=== PATIENT | female | born 1960 | race Caucasian/White ===

== ENCOUNTER 2017-10-10 19:48 | Emergency (ER) | payer BC, OTHER ==
[2017-10-10 20:25] LABS: #Basophils 0.1 thou/uL (0.0-0.2); #Lymphocytes 2.9 thou/uL (1.20-3.40); #Monocytes 1.1 thou/uL (0.11-0.59); #Neutrophils 7.5 thou/uL (1.40-6.50); %Basophils 0.5 % (0.0-1.0); %Eosinophils 0.4 % (0.0-10.0); %Lymphocytes 24.7 % (21.0-51.0); %Monocytes 9.2 % (0.0-10.0); %Neutrophils 65.3 % (42.0-75.0); Hemoglobin 14.4 g/dL (12.0-16.0); Mean Corpuscular HGB CONC 34.5 g/dL (32.0-36.0); Mean Corpuscular Hemoglobin 29.9 pg (27.0-31.0); Mean Corpuscular Volume 86.4 fl (81.0-99.0); Platelet Count 294 thou/uL (130-400); RBC Distribution Width 13.1 % (11.5-14.5); Red Blood Cell (RBC) Count 4.82 mill/uL (4.20-5.40); White Blood Cell (WBC) Count 11.5 thou/uL (4.8-10.8)
[2017-10-10 20:45] LABS: ALT (SGPT) 33 U/L (8-55); AST (SGOT) 32 U/L (5-34); Albumin 4.2 g/dL (3.5-5.0); Alkaline Phosphatase 96 U/L (40-150); Anion Gap 19 mmol/L (10-20); BUN (Urea Nitrogen) 16 mg/dL (9.8-20.1); Bilirubin, Total 0.6 mg/dL (0.2-1.2); Calc. Creatinine Clearance 0 mL/min (70-130); Calcium 9.8 mg/dL (7.8-10.44); Carbon Dioxide 18 mmol/L (22-29); Chloride 103 mmol/L (98-107); Estimated GFR-MDRD 49; Globulin 3.6 g/dL (2.4-3.5); Glucose 136 mg/dL (70-105); Potassium 4.7 mmol/L (3.5-5.1); Protein, Total 7.8 g/dL (6.0-8.3); Sodium 135 mmol/L (136-145)
[2017-10-10] MEDS ORDERED: Ondansetron ODT 8 MG TAB ONE (20:45)
[2017-10-10] MEDS ORDERED: Ketorolac Tromethamine 30 MG/ML VIAL ONE (20:45)
--- NOTE | 2017-10-10 21:30 | CT ---
CT ABDOMEN AND PELVIS WITHOUT CONTRAST: 10/10/17 Multiple axial tomograms obtained through the abdomen and pelvis without IV enhancement. INDICATIONS: Right flank pain with fever. Comparison made to CT abdomen and pelvis, 05/24/16. FINDINGS: Lung bases clear. The liver, spleen, and pancreas unremarkable. There is mild right hydronephrosis. There is a 5 mm calculus in the proximal right ureter producing m ild right hydronephrosis. Left ureter is normal in appearance. There are numerous nonobstructing calc omar in the upper collecting structures of the right kidney measuring in the 3 to 5 mm range. There is evidence of tiny nonobstructing calculi in the upper collecting structures of the left kidney measur ing in the 1 mm range. Bowel loops are unremarkable. Appendix appears normal. There is diverticulosis again noted. 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 IMPRESSION: 1. 5 mm obstructing calculus mid right ureter. 2. Nonobstructing calculi in the upper collecting structures of both kidneys, more numerous on the right. 3. 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 4. Diverticulosis. POS: [facility]
[2017-10-10 22:12] LABS: Bilirubin Negative (Negative); Blood, Urine Large (Negative); Clarity CLOUDY (Clear); Glucose, Urine (Dipstick) Negative (Negative); Leukocyte Small (Negative); Nitrite Negative (Negative); Protein, Urine (Dipstick) Trace mg/dL (Neg-Trace); Specific Gravity, Urine 1.017 (1.002-1.036); Urobilinogen 0.2 mg/dL (0.2-1.0); pH, Urine 7.5 (5.0-9.0)
[2017-10-10 22:16] LABS: Bacteria/HPF 1+ HPF (None Seen); Hyaline Casts/LPF 0-3 HYALINE CAST LPF (0-3 Hyaline); RBC/HPF GREATER THAN 50-TNTC HPF (0-3); Squamous Epithelial 0-3 HPF (0-3); WBC/HPF 0-3 HPF (0-3)
== END 2017-10-10 22:45 | disposition home or self-care (01) ==
LOC: ERS 19:48
DX: N13.2 Hydronephrosis with renal and ureteral calculous obstruction (principal); E66.9 Obesity, unspecified
CPT/HCPCS: 74176; 80053; 81003; 81015; 83690; 85025; 96361; 96374; J1885

== ENCOUNTER 2017-11-06 12:14 | Outpatient (CLI) | payer BC | END 2017-11-06 12:15 | disposition home or self-care (01) | LOC: BICULT 12:14 | PROVIDERS: ATTEND Urology | DX: N20.0 Calculus of kidney (principal) | CPT/HCPCS: 76770 ==

== ENCOUNTER 2017-11-08 12:59 | Day surgery (SDC) | payer BC ==
[2017-11-07 09:52] VITALS: BMI 51.5
[2017-11-08] MEDS ORDERED: Midazolam HCl 2 mg/2 ml Vial ONE (13:40)
[2017-11-08] MEDS ORDERED: PROPOFOL 200 MG/20 ML VIAL ONE (14:30)
[2017-11-08] MEDS ORDERED: Lidocaine 1% PF 5 ML VIAL ONE (14:30)
[2017-11-08 15:47] LABS: #Basophils 0.1 thou/uL (0.0-0.2); #Eosinphils 0.1 thou/uL (0.0-0.7); #Lymphocytes 2.4 thou/uL (1.20-3.40); #Monocytes 0.6 thou/uL (0.11-0.59); #Neutrophils 5.6 thou/uL (1.40-6.50); %Basophils 0.6 % (0.0-1.0); %Eosinophils 1.4 % (0.0-10.0); %Lymphocytes 27.8 % (21.0-51.0); %Monocytes 6.4 % (0.0-10.0); %Neutrophils 63.9 % (42.0-75.0); Hemoglobin 14.1 g/dL (12.0-16.0); Mean Corpuscular HGB CONC 33.7 g/dL (32.0-36.0); Mean Corpuscular Hemoglobin 29.5 pg (27.0-31.0); Mean Corpuscular Volume 87.6 fL (78.0-98.0); Mean Platelet Volume 6.9 fL (7.4-10.4); Platelet Count 273 thou/uL (130-400); RBC Distribution Width 13.4 % (11.5-14.5); Red Blood Cell (RBC) Count 4.78 mill/uL (4.20-5.40); White Blood Cell (WBC) Count 8.8 thou/uL (4.8-10.8)
[2017-11-08 16:08] LABS: ALT (SGPT) 27 U/L (8-55); AST (SGOT) 24 U/L (5-34); Albumin 4.2 g/dL (3.5-5.0); Alkaline Phosphatase 91 U/L (40-150); Anion Gap 14 mmol/L (10-20); BUN (Urea Nitrogen) 12 mg/dL (9.8-20.1); Bilirubin, Total 0.6 mg/dL (0.2-1.2); Calc. Creatinine Clearance 145 mL/min (70-130); Calcium 9.7 mg/dL (7.8-10.44); Carbon Dioxide 26 mmol/L (22-29); Chloride 103 mmol/L (98-107); Estimated GFR-MDRD 62; Globulin 2.9 g/dL (2.4-3.5); Glucose 86 mg/dL (70-105); Potassium 3.8 mmol/L (3.5-5.1); Protein, Total 7.1 g/dL (6.0-8.3); Sodium 139 mmol/L (136-145)
--- NOTE | 2017-11-08 20:10 | OP ---
DATE OF PROCEDURE: 11/08/2017 TITLE OF PROCEDURE: Colonoscopy with biopsy. PREPROCEDURE DIAGNOSES: 1. Chronic diarrhea. 2. A 15-pound weight loss in over 3 months. 3. History of negative stool tests for Clostridium difficile and parasites. POSTPROCEDURE DIAGNOSES: 1. Exam to cecum; adequate bowel preparation. 2. Mildly tortuous colon, diffusely. 3. Mild sigmoid diverticulosis. 4. Pancolitis extending from the cecum distally to the rectum with the most severe involvement in th e sigmoid and descending colon. 5. Endoscopic findings suspicious for ulcerative colitis. 6. Small internal hemorrhoids. PROCEDURE IN DETAIL: Written informed consent was obtained. Upon completion of the EGD, the patient was repositioned for the colonoscopy. Total intravenous anesthesia was provided by Dr. Jean Claude Sparrow and associates. The patient was placed in the left lateral decubitus position. A digital rectal ex am was performed that was unremarkable. A Pentax video colonoscope was inserted through the anal can al and advanced under direct visualization to the cecum. Position in the cecum was verified by palpa tion and identification of the ileocecal valve, although the valve was not intubated. Endoscopic fin dings revealed a diffusely tortuous colon, which made it difficult to reach the cecal tip. Also, bec ause of opaque liquid stool pooling in several areas of the colon including the cecum, identification of the cecal strap and appendiceal orifice was not possible. Endoscopic findings revealed pancoliti s extending from the cecum to the rectum with the most severe involvement in the descending and sigmo id colon. Circumferential edema, erythema, attenuation and/or loss of the normal vascular pattern we re the most notable mucosal changes. Mucous was apparent in the colon, especially in the left colon. There was no evidence of luminal narrowing or stricture. Biopsies were obtained at 5 different lev els in the cecum/ascending colon. Transverse colon, descending colon, sigmoid colon, and rectosigmoi d colon. No polyps were identified. In the rectum, a retroflexed exam demonstrated small internal h emorrhoids. The colon was decompressed as the colonoscope was removed from the patient. She was tra nsferred to the day stay surgery area for post-procedure monitoring. There were no immediate complic ations. RECOMMENDATIONS: 1. Await biopsy results. 2. Ask the patient to call me in 1 week for biopsy results. 3. Have patient follow up in the clinic in 10-14 days. 4. Further recommendations regarding therapy, pending release of pathology results.
--- NOTE | 2017-11-08 20:11 | OP ---
DATE OF PROCEDURE: 11/08/2017 TITLE OF PROCEDURE: EGD with biopsy. PREPROCEDURE DIAGNOSES: 1. Intermittent epigastric pain. 2. Nausea and vomiting. 3. Recent 15-pound weight loss. POSTPROCEDURE DIAGNOSES: 1. Examination to second portion of duodenum. 2. Normal appearing esophagus. 3. Mild body and antral gastritis, biopsied for histology. 4. No evidence of gastric or duodenal ulcers. 5. Possible mild duodenitis, bulb, biopsied for histology. PROCEDURE IN DETAIL: Written informed consent was obtained. The patient was brought to the endoscop y suite. Total intravenous anesthesia was provided by Dr. Jean Claude Sparrow and associates. The patient was placed in the left lateral decubitus position. A bite block was inserted into the mouth. When a dequate sedation was achieved, a Pentax video diagnostic gastroscope was introduced into the oral cav ity and the esophagus was carefully intubated. The gastroscope was advanced under direct visualizati on to the second portion of the duodenum. Endoscopic findings revealed a grossly normal appearing es ophagus with the Z-line estimated at 41 cm. The stomach was entered and carefully examined. This in cluded a careful retroflexed view of the cardia and fundus. Mild patchy erythema was noted in the di stal body and antrum without ulceration. Biopsies were obtained for histology. The duodenum was the n entered and carefully examined. Mild patchy erythema was also noted in the duodenal bulb without u lceration. Biopsies were obtained here and in the postbulbar duodenum for histology. The stomach wa s decompressed as the endoscope was removed from the patient. There were no immediate complications. She was repositioned for the colonoscopy. RECOMMENDATIONS: 1. Await pathology results. 2. Ask the patient to call me in 1 week for pathology results. 3. Follow up in GI clinic in 10-14 days. 4. We will prescribe a short course of omeprazole 40 mg daily for the next 4 weeks.
== END 2017-11-08 16:15 | disposition home or self-care (01) ==
LOC: SDC 12:59
PROVIDERS: ATTEND Internal Medicine Gastroenterology
PROC: 0DBK8ZX Excision of Ascending Colon, Via Natural or Artificial Opening Endoscopic, Diagnostic (ICD-10-PCS; principal; 2017-11-08)
PROC: 0DBN8ZX Excision of Sigmoid Colon, Via Natural or Artificial Opening Endoscopic, Diagnostic (ICD-10-PCS; principal; 2017-11-08)
PROC: 0DBL8ZX Excision of Transverse Colon, Via Natural or Artificial Opening Endoscopic, Diagnostic (ICD-10-PCS; principal; 2017-11-08)
PROC: 0DB98ZX Excision of Duodenum, Via Natural or Artificial Opening Endoscopic, Diagnostic (ICD-10-PCS; principal; 2017-11-08)
PROC: 0DB78ZX Excision of Stomach, Pylorus, Via Natural or Artificial Opening Endoscopic, Diagnostic (ICD-10-PCS; principal; 2017-11-08)
PROC: 0DBH8ZX Excision of Cecum, Via Natural or Artificial Opening Endoscopic, Diagnostic (ICD-10-PCS; principal; 2017-11-08)
PROC: 0DBM8ZX Excision of Descending Colon, Via Natural or Artificial Opening Endoscopic, Diagnostic (ICD-10-PCS; principal; 2017-11-08)
DX: K52.9 Noninfective gastroenteritis and colitis, unspecified (principal); K29.50 Unspecified chronic gastritis without bleeding; B96.81 Helicobacter pylori [H. pylori] as the cause of diseases classified elsewhere; K63.89 Other specified diseases of intestine; K57.30 Diverticulosis of large intestine without perforation or abscess without bleeding; K64.8 Other hemorrhoids; E07.9 Disorder of thyroid, unspecified; Z79.899 Other long term (current) drug therapy; Z98.84 Bariatric surgery status
CPT/HCPCS: 36415; 80053; 85025; 85652; 86141; 88305; 88312; J2001; J2250; J2704

== ENCOUNTER 2020-02-27 08:03 | Outpatient (CLI) | payer BC ==
--- NOTE | 2020-02-27 08:26 | MMO ---
Bilateral MAMMO Bilat Screen [facility]. CLINICAL HISTORY: Patient is 60 years old and is seen for screening. The patient has the following family history of breast cancer: sister, malignant (generic). The patient has no personal history of cancer. VIEWS: The views performed were: bilateral craniocaudal with tomosynthesis and bilateral mediolateral oblique with tomosynthesis. FILMS COMPARED: The present examination has been compared to prior imaging studies performed at [facility] on 03/04/2007, 12/23/2008, 02/08/2011 and 04/12/2016. This study has been interpreted with the assistance of computer-aided detection. MAMMOGRAM FINDINGS: The breasts are almost entirely fat. Finding 1: There are stable benign appearing calcifications seen in both breasts. Finding 2: There are stable intramammary lymph nodes seen in both breasts. There are no suspicious masses, suspicious calcifications, or new areas of architectural distortion. IMPRESSION: THERE IS NO MAMMOGRAPHIC EVIDENCE OF MALIGNANCY. A ROUTINE FOLLOW-UP MAMMOGRAM IN 1 YEAR IS RECOMMENDED. THE RESULTS OF THIS EXAM WERE SENT TO THE PATIENT. ACR BI-RADS Category 2 - Benign finding MAMMOGRAPHY NOTE: 1. A negative mammogram report should not delay a biopsy if a dominant of clinically suspicious mass is present. 2. Approximately 10% to 15% of breast cancers are not detected by mammography. 3. Adenosis and dense breasts may obscure an underlying neoplasm. Reported by: YAMINI UNDERWOOD MD Electonically Signed: [id number]
== END 2020-02-27 08:04 | disposition home or self-care (01) ==
LOC: BICMAMMO 08:03
PROVIDERS: ATTEND Internal Medicine
DX: Z12.31 Encounter for screening mammogram for malignant neoplasm of breast (principal); Z80.3 Family history of malignant neoplasm of breast
CPT/HCPCS: 77063; 77067

== ENCOUNTER 2022-04-17 07:44 | Outpatient (CLI) | payer BC | END 2022-04-17 07:45 | disposition home or self-care (01) | LOC: BICMAMMO 07:44 | PROVIDERS: ATTEND Internal Medicine | DX: Z12.31 Encounter for screening mammogram for malignant neoplasm of breast (principal); Z80.3 Family history of malignant neoplasm of breast | CPT/HCPCS: 77063; 77067 ==

== ENCOUNTER 2022-07-14 13:08 | Outpatient (CLI) | payer BC | END 2022-07-14 13:09 | disposition home or self-care (01) | LOC: BICMAMMO 13:08 | PROVIDERS: ATTEND Physician Assistant | DX: Z13.820 Encounter for screening for osteoporosis (principal); Z78.0 Asymptomatic menopausal state; M85.851 Other specified disorders of bone density and structure, right thigh; M85.852 Other specified disorders of bone density and structure, left thigh | CPT/HCPCS: 77080 ==

== ENCOUNTER 2023-03-29 13:32 | Outpatient (CLI) | payer BC | END 2023-03-29 13:33 | disposition home or self-care (01) | LOC: BICRAD 13:32 | PROVIDERS: ATTEND Physician Assistant | DX: M79.601 Pain in right arm (principal); M19.011 Primary osteoarthritis, right shoulder ==

== ENCOUNTER 2025-03-12 16:41 | Outpatient (CLI) | payer BC | END 2025-03-12 16:42 | disposition home or self-care (01) | LOC: RAD 16:41 | PROVIDERS: ATTEND Nurse Practitioner Family | DX: R06.02 Shortness of breath (principal) | CPT/HCPCS: 71046 ==

== ENCOUNTER 2025-03-16 07:19 | Observation (INO) | payer BC ==
[2025-03-16 07:55] LABS: #Basophils 0.06 10x3/uL (0.0-0.2); #Eosinophils 0.18 10x3/uL (0.0-0.7); #Monocytes 0.61 10x3/uL (0.11-0.59); #Neutrophils 4.92 10x3/uL (1.40-6.50); %Basophils 0.8 % (0.0-1.0); %Eosinophils 2.3 % (0.0-10.0); %Lymphocytes 25.0 % (21.0-51.0); %Monocytes 7.9 % (0.0-10.0); %Neutrophils 63.7 % (42.0-75.0); Hematocrit 44.9 % (36.0-47.0); Hemoglobin 14.0 g/dL (12.0-16.0); Mean Corpuscular Hemoglobin 27.8 pg (27.0-31.0); Mean Corpuscular Volume 89.1 fL (78.0-98.0); Platelet Count 230 10x3/uL (130-400); Red Blood Cell (RBC) Count 5.04 mill/uL (4.20-5.40); White Blood Cell (WBC) Count 7.72 10x3/uL (4.8-10.8)
[2025-03-16] MEDS ORDERED: Nitroglycerin 2% Ointment 1 INCH/1 GM Packet ONE (07:59)
[2025-03-16 08:01] LABS: Bacteria/HPF Rare-Few HPF (None Seen); CAUTI Indications for Culture Dysuria,urgency,freq; Glucose, Urine (Dipstick) Normal (Negative); Leukocyte 75 Leu/uL (Negative); Protein, Urine (Dipstick) Negative (Neg-Trace); RBC/HPF 0-3 HPF (0-3); Specific Gravity, Urine 1.020 (1.002-1.036)
[2025-03-16 08:02] LABS: Urine Culture Reflex Yes Yes
[2025-03-16 08:12] LABS: ALT (SGPT) 12 U/L (Less than 34); AST (SGOT) 17 U/L (11-34); Albumin 4.1 g/dL (3.1-4.5); Alkaline Phosphatase 93 U/L (40-110); Anion Gap 16 mmol/L (10-20); BUN (Urea Nitrogen) 17 mg/dL (9.8-20.1); Bilirubin, Total 0.5 mg/dL (0.3-1.2); Calc. Creatinine Clearance 0 mL/min (70-130); Calcium 9.7 mg/dL (7.8-10.44); Carbon Dioxide 20 mmol/L (23-31); Chloride 107 mmol/L (98-107); Globulin 3.2 g/dL (2.4-3.5); Glucose 103 mg/dL (80-115); Potassium 4.4 mmol/L (3.5-5.1); Sodium 139 mmol/L (136-145)
[2025-03-16] MEDS: Aspirin 325 MG TAB PO SCH (12:36)
[2025-03-16] MEDS ORDERED: Acetaminophen 325 MG TAB PO PRN (13:31)
[2025-03-16 13:58] VITALS: BMI 49.5
[2025-03-16] MEDS: HYDROcodone/Acetaminophen 10/325 mg Tablet PO PRN (14:05)
[2025-03-16] MEDS ORDERED: Communication Order-Pharmacy FS SCH (16:00)
[2025-03-17 05:22] LABS: Cardiac Risk 3.8 (Less than 4.5); Cholesterol 153.0 mg/dl (< 200 Desired); HDL Cholesterol 40.0 mg/dL (>60 Neg Risk); LDL Cholesterol, Calculated 88.0 mg/dL; Triglycerides 126.0 mg/dL (Less than 150)
[2025-03-17] MEDS: Aspirin Chewable 81 MG TAB PO SCH (06:28)
[2025-03-17] MEDS ORDERED: Heparin 10,000 UNITS/ 10 ML VIAL ONE (06:51)
[2025-03-17] MEDS ORDERED: PHENYLEPHRINE-NS 100 MCG/ML 10 ML SYRINGE ONE (06:51)
[2025-03-17] MEDS ORDERED: Lidocaine 1% (PF) 30 ML VIAL ONE (06:51)
[2025-03-17] MEDS ORDERED: Adenosine 6 mg (2 mL) VIAL ONE (06:51)
[2025-03-17] MEDS ORDERED: Nitroglycerin 50 MG/250 ML BOT 250 ML ONE (06:51)
[2025-03-17] MEDS: FLU (Fluarix Triv) 25-26 (6MOS UP)/PF 45 MCG/0.5 ML Syringe IM ONE (10:28)
[2025-03-17] MEDS: TICAGRELOR 90 MG TABLET PO SCH (11:39)
[2025-03-17 12:17] VITALS: BP 104/62; TEMP 98.5
[2025-03-17] MEDS: cefTRIAXone\\ROCEPHIN 1 GM in Sodium Chloride 0.9% 100 ML IVPB SCH (13:54)
[2025-03-17] MEDS ORDERED: TICAGRELOR 90 MG TABLET PO SCH (21:00)
[2025-03-18] MEDS ORDERED: Aspirin Chewable 81 MG TAB PO SCH (09:00)
== END 2025-03-17 16:45 | disposition home or self-care (01) ==
LOC: ERS 07:19 → OBS 10:06
PROVIDERS: ADMIT Internal Medicine; ATTEND Hospitalist
DX: I25.110 Atherosclerotic heart disease of native coronary artery with unstable angina pectoris (principal); E11.9 Type 2 diabetes mellitus without complications; E66.01 Morbid (severe) obesity due to excess calories; Z68.42 Body mass index [BMI] 45.0-49.9, adult; Z98.84 Bariatric surgery status; Z87.442 Personal history of urinary calculi; Z90.49 Acquired absence of other specified parts of digestive tract; Z79.85 Long-term (current) use of injectable non-insulin antidiabetic drugs; Z79.82 Long term (current) use of aspirin; Z79.899 Other long term (current) drug therapy
CPT/HCPCS: 36415; 71045; 80053; 80061; 81001; 83036; 84443; 84484; 85025; 85347; 87077; 87086; 87186; 92928; 92978; 93005; 93010; 93458; 96374; 97139; 99152; 99153; C9600; G0378; J0153; J0461; J0696; J1644; J2003